=== PATIENT | female | born 1955 | race Caucasian/White ===

== ENCOUNTER 2018-06-13 08:00 | Day surgery (SDC) | payer OTHER ==
[~2018-06-13] VITALS: Ht 154.9 cm; Wt 45.8 kg
[~2018-06-13 08:00] MED LIST: KLONOPIN2 MG PO; ONDANSETRON HCL8 MG PO; SERTRALINE HCL50 MG PO
--- NOTE | 2018-06-13 09:45 | NUR ---
06/13/18 0945 Sheets,Romana 0932 PT ARRIVED TO PACU ON 4L VIA NC, PT ASLEEP AND REACTIVE TO PAINFUL STIMULI. RESP EVEN AND UNLABORED. 0935 PT WAKES TO TACTILE STIMULI AND DENIES PAIN AND NAUSEA. WARM AIR APPLIED UNDER BLACKETS FOR PT PER REQUEST. PT ASLEEP OFF AND ON. 0940 PERIOD OF APNEA NOTED AND RN WAKES PT AND ENCOURAGES PT TO DEEP BREATHE. PT ABLE TO FOLLOW COMMANDS.
--- NOTE | 2018-06-15 16:19 | OR ---
[facility] [address], [place] [address] Signed DATE OF OPERATION: 06/13/2018 SURGEON: Stanley Woodard MD PREOPERATIVE DIAGNOSES: 1. Colon screening. 2. Vertiginous migraine problems. POSTOPERATIVE DIAGNOSES: 1. Small polyp of cecum (excised). 2. Internal and external hemorrhoidal disease. PROCEDURE PERFORMED: Total colonoscopy to cecum with cold morcellation polypectomy x1. ANESTHESIA: Intravenous sedation; propofol infusion; Janneth Pagan CRNA. INDICATION: This 63-year-old white woman is a patient of Dr. Hdez and Dr. James, and has a complex past history of vertiginous migraines with a complex regimen for management. She is here for a screening colonoscopy. She has no bleeding, diarrhea, or constipation. She is admitted to undergo colonoscopy understanding the risks of bleeding, infection, and perforation. FINDINGS: The prep was excellent. Complete colonoscopy was undertaken of the cecum. There was a small polyp of the cecum, which was excised with cold morcellation technique. The remaining colon was normal except for internal hemorrhoids and external hemorrhoids as well. DESCRIPTION OF PROCEDURE: The patient was brought to the endoscopy suite and placed in lateral decubitus position, given intravenous sedation by the audience development manager with propofol infusional technique with full cardiopulmonary monitoring. Once sedated, digital rectal examination was undertaken showing external hemorrhoidal changes. An Olympus video colonoscope was passed in the rectum and manipulated throughout the colon ultimately intubating the cecum itself. The ileocecal valve was normal. There was a small polyp, which was slightly pedunculated actually and this was excised with cold morcellation technique. The scope was further withdrawn and remaining colon was normal. Retroflexed view Electronically Signed By: STANLEY WOODARD MD 06/15/18 1619 PATIENT NAME: KRISTI ALBARRAN OPERATIVE REPORT DATE OF : 59 REPORT #: [id number] PHYSICIAN: STANLEY WOODARD MD PCP: SUKHJINDER JAMES DO REPORT IS CONFIDENTIAL AND NOT TO BE RELEASED WITHOUT AUTHORIZATION [facility] [address], [place] [address] Signed confirmed internal hemorrhoidal changes. External hemorrhoidal changes were noted at the outset of procedure. Scope was removed. The patient was taken to recovery room in good condition. CONCLUDING DIAGNOSES: 1. Polyps x1 of cecum. 2. Internal and external hemorrhoids. PLAN: Recommend high-fiber diet. Recommend repeat colonoscopy in 3 years, sooner if symptoms should occur. If pathology of the polyp is found to be hyperplastic, repeat can be taken out to 10 years. She will follow up with Dr. Hdez and Dr. James as well. MD GALE Rolon/ESPERANZA /[id number] cc: MD Sukhjinder Rabago DO Copies: HAYLEE HDEZ MD, FRANK E DO ~ Electronically Signed By: STANLEY WOODARD MD 06/15/18 1619 PATIENT NAME: KRISTI ALBARRAN OPERATIVE REPORT DATE OF : 59 REPORT #: [id number] PHYSICIAN: STANLEY WOODARD MD PCP: SUKHJINDER JAMES DO REPORT IS CONFIDENTIAL AND NOT TO BE RELEASED WITHOUT AUTHORIZATION
== END 2018-06-13 10:32 | disposition home or self-care (01) ==
LOC: DS 08:00 → OPS 08:00 → DS 08:30 → OPS 10:32 → DS 06-19 08:30
PROVIDERS: Surgery
PROC: 0DBH8ZX Excision of Cecum, Via Natural or Artificial Opening Endoscopic, Diagnostic (ICD-10-PCS; principal; 2018-06-13 08:30)
DX: Z12.11 Encounter for screening for malignant neoplasm of colon (principal); K63.5 Polyp of colon; K64.8 Other hemorrhoids; K64.4 Residual hemorrhoidal skin tags; G44.89 Other headache syndrome; Z88.0 Allergy status to penicillin; Z88.2 Allergy status to sulfonamides; Z88.8 Allergy status to other drugs, medicaments and biological substances; Z79.899 Other long term (current) drug therapy
CPT/HCPCS: J2250; J2405; J2704; J3010; J7120